=== PATIENT | female | born 1945 | race Caucasian/White ===

== ENCOUNTER → 2018-05-02 | Outpatient (CLI) | payer MEDICARE ==
--- NOTE | 2018-05-03 05:13 | CT ---
EXAMINATION TYPE: CT wrist LT wo con DATE OF EXAM: 05/02/2018 COMPARISON: None HISTORY: 72-year-old female with Left wrist pain. TECHNIQUE: Contiguous axial scanning of the left wrist without IV contrast. Coronal and sagittal chan nstructions performed. 3-D reconstructions generated on a dedicated independent workstation. CT DLP: 246 mGycm Automated exposure control for dose reduction was used. FINDINGS: There is an impacted, comminuted, transverse fracture of the distal radial metaphysis. There is intra -articular extension to the dorsal lateral margin of the radioscaphoid joint without any significant articular surface disruption. Comminution incorporates the Aurelio's tubercle and the extensor pollici s longus courses along the ulnar-sided fracture margin, refer to axial image 55. Additional impacted oblique fracture at the level of the ulnar neck. Associated soft tissue swelling. Moderate to severe degenerative change at the first CMC and triscaphe joint as well as the second CMC joint. No additional acute fracture or dislocation. The extensor carpi ulnaris courses along the fracture margin, refer to axial image 58 and also shows slight anterior subluxation. Overlying plaster cast. IMPRESSION: 1. IMPACTED, COMMINUTED DISTAL RADIAL METAPHYSIS AND EPIPHYSEAL FRACTURE. COMMINUTION EXTENDS DORSALL Y TO INVOLVE AURELIO'S TUBERCLE AND THERE IS INTRA-ARTICULAR EXTENSION TO THE DORSAL LATERAL MARGIN OF THE RADIOSCAPHOID JOINT WITHOUT SIGNIFICANT ARTICULAR SURFACE DISRUPTION. 2. MILDLY DISPLACED OBLIQUE FRACTURE AT THE LEVEL OF THE ULNAR NECK. 3. BOTH THE ECU AND EPL COURSE ALONG FRACTURE MARGINS. 4. OSTEOARTHRITIC CHANGES AT THE BASE OF THE THUMB.
== END | disposition home or self-care (01) ==
LOC: RADCTMAIN 16:38
PROVIDERS: ATTEND Orthopaedic Surgery
DX: S52.502A Unspecified fracture of the lower end of left radius, initial encounter for closed fracture (principal); S52.232A Displaced oblique fracture of shaft of left ulna, initial encounter for closed fracture; M19.042 Primary osteoarthritis, left hand